=== PATIENT | female | born 2000 | race Caucasian/White ===

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

== ENCOUNTER → 2018-04-08 | Outpatient (CLI) | payer BC | LOC: RAD 09:12 | DX: M79.641 Pain in right hand (principal); M25.531 Pain in right wrist; Z91.81 History of falling ==

== ENCOUNTER 2018-08-31 09:17 | Emergency (ER) | payer BC ==
[~2018-08-31] VITALS: Ht 172.7 cm; Wt 68.2 kg
[2018-08-31] MEDS ORDERED: TRIAMCINOLONE AC0.13 TP (09:26)
[2018-08-31] MEDS ORDERED: FLUTICASON0.05 MG/AC NS (09:26)
[2018-08-31] MEDS ORDERED: NORCO 325 MG-51 TA1 PO (11:33)
[2018-08-31 11:59] VITALS: BP 110/71
== END 2018-08-31 12:00 | disposition home or self-care (01) ==
LOC: ED 09:17
DX: S90.31XA Contusion of right foot, initial encounter (principal); Z98.890 Other specified postprocedural states; W20.8XXA Other cause of strike by thrown, projected or falling object, initial encounter; Z79.51 Long term (current) use of inhaled steroids

== ENCOUNTER → 2018-09-30 | Outpatient (CLI) | payer BC ==
[2018-08-31 11:59] VITALS: BP 110/71
[~2018-09-30] MED LIST: FLUTICASON0.05 MG/AC NS; NORCO 325 MG-51 TA1 PO; TRIAMCINOLONE AC0.13 TP
== END ==
LOC: RAD 07:00
DX: R60.9 Edema, unspecified (principal)

== ENCOUNTER → 2018-12-02 | Outpatient (CLI) | payer BC | LOC: RAD 07:00 | DX: R60.0 Localized edema (principal); T14.8XXA Other injury of unspecified body region, initial encounter ==